=== PATIENT | male | born 1960 | race African-American/Black ===

== ENCOUNTER 2018-05-26 14:30 | Outpatient (RCR) | payer MEDICAID, SELFPAY ==
--- NOTE | 2018-02-14 16:04 | HP.PTEVAL ---
Patient's Visit Information SERGIO DYER is a 57 year old M referred to Physical Therapy by Larry Correa with a diagnosis of BACK PAIN. Date of Evaluation: 02/14/18 Physical Therapist: Logan Demarco, PT, - Visit Plan Frequency: 2x /Week Duration: 4 Weeks Plan: Aquatic PT for lumbar ROM,LE ROM -HIP,DLS ,LE STRENGTHENING,POSTURAL EX'S - Subjective Subjective: This 57 y/o male presents to physical therapy with back pain. Patient has had lumbar pain many years no trauma just incidous onset of pain. 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 Patient location of pain symttrical lumbar descriped as ache -dull. Symptoms bending,standing 10min, walking 1/4 mile ,lifting,sitting . Patient symptoms rest. Occassional parathesia/tingling right leg. Coughing/sneezing -. Bowel/bladder good. Patient has difficlty sleeping at night. Patien affects QOL and ADL'S. Patient has injections in past. VOCATION: disablity. SOCAIL: single - Pain Bilateral Back Pain Intensity (Out of 10): 7 Pain Intensity Range: 10 - Objective POSTURE: mild foward posture trunk flexed. GAIT: ambulates with cane mild fowaerd posture antalgic gait right vside with cane. NEURO: occassional parathesia lower leg,reflexes L3-4,L4-5,L5-S1 1/3. PALPATION: tender SI /LS. SYMMTRIES: leg length assymtries 2 right. PROM: hip flexion 80 degrees pain,abduction 20 degrees,IR -5 Degrees. FLEXABLITY: hams mod tight. LUMBAR ROM: flexion mod loss ,side glides mod loss,extension severe loss. MMT:right quads/hams 4-/5,3+/5 flexion hip ,abd 3-/5 pain right ,left 4/5 excvept hip 4-/5 - Special Tests L/S Slump test left side: Negative L/S Slump test right side: Negative L/S Left Straight Leg Raise: Negative L/S Right Straight Leg Raise: Negative - Goals Goal 1:: Independant with Aquatic PT Goal Time Frame: 4-6 Weeks Goal 2:: Patient to improve posture for ADLS' Goal Time Frame: 4-6 Weeks Goal 3:: Patient decrease back pain by 40% or greater to improve function with ADL'S Goal Time Frame: 4-6 Weeks Goal 4:: Patient to improve lumbar ROM for function of recovery Goal Time Frame: 4-6 Weeks Goal 5:: Patient to improve gait with less anatalgic gait with cane by 60 % or greater . Goal Time Frame: 4-6 Weeks - Rehabilitation Potential Physical Therapy Diagnosis: This 57 y/o male has lumbar pain along with right hip pain due to DJD with right leg extremely shorter ,with patient being a candidate for THR. Patient has pain lumbar,weakness ,poor lumbar ROM ,gait deficits causes impairments with ADL'S Rehabilitation Potential: Good - Anticipated Interventions Patient/Client Instruction: Educate patient on: Condition, Plan of Care For the Purpose of:: To decrease pain, To increase ROM, To improve muscle performance and motor function, To increase tolerance to activity/condition/position, To improve performance and independence with ADL's, To improve ability of physical actions for home/community/work/leisure, To improve health of tissue, To decrease soft tissue restriction, To increase flexibility/ROM, To improve ability to perform tasks related to life management Therapeutic Exercise to Include: Strength training, Body mechanics, Postural training, Flexibilty training, In an aquatic setting, Active ROM, Dynamic Lumbar Stabilization Comment: LE-HIP For the Purpose of:: To decrease pain, To increase ROM, To improve muscle performance and motor function, To improve ability to perform ADL's, To increase tolerance to activity/condition/position, To improve ability of physical actions for home/community/work/leisure, To improve gait and locomotor functions, To improve health of tissue, To decrease soft tissue restriction, To increase flexibility/ROM, To improve endurance, To improve ability to perform tasks related to life management Thank you for the opportunity to evaluate your patient. For Medicare and Medicare HMO plans, please review the plan of care and approve it. It will need to be FAXED BACK to us at [phone] for Medicare purposes. Please let me know if there are questions or concerns regarding this plan of care. Physician Signature: Date:
--- NOTE | 2018-04-10 18:40 | HP.PTDCNRP_ITS ---
HP - Discharge Summary (1) - Patient Information SERGIO DYER was seen in my office for initial evaluation on 02/14/18. The following Plan of Care was established for this patient: Initial Frequency: 2x /Week Initial Duration: 4 Weeks - Anticipated Interventions Patient/Client Instruction: Educate patient on: Condition, Plan of Care For the Purpose of:: To decrease pain, To increase ROM, To improve muscle perf ormance and motor function, To increase tolerance to activity/condition/position, To improve performance and independence with ADL's, To improve ability of physical actions for home/community/work/leisure, To improve health of tissue, To decrease soft tissue restriction, To increase flexibility/ROM, To improve ability to perform tasks related to life management Therapeutic Exercise to Include: Strength training, Body mechanics, Postural training, Flexibilty training, In an aquatic setting, Active ROM, Dynamic Lumbar Stabilization For the Purpose of:: To decrease pain, To increase ROM, To improve muscle performance and motor function, To improve ability to perform ADL's, To increase tolerance to activity/condition/position, To improve ability of physical actions for home/community/work/leisure, To improve gait and locomotor functions, To improve health of tissue, To decrease soft tissue restriction, To increase flexibility/ROM, To improve endurance, To improve ability to perform tasks related to life management This patient was last seen in our office 02/23/18. Pertinent comments regarding their Physical therapy will appear below: Patient seen for PT for back pain for Aquatic PT but is d/c after 2 visits. At this point I will be discontinuing this patient from physical therapy. I would be happy to see this patient again in the future if found appropriate by the physician. Thank you! Logan Demarco, PT,
--- NOTE | 2018-08-10 09:18 | HP.PTDCNRP_ITS ---
HP - Discharge Summary (1) - Patient Information SERGIO DYER was seen in my office for initial evaluation on 02/14/18. The following Plan of Care was established for this patient: Initial Frequency: 2x /Week Initial Duration: 4 Weeks - Anticipated Interventions Patient/Client Instruction: Educate patient on: Condition, Plan of Care For the Purpose of:: To decrease pain, To increase ROM, To improve muscle perf ormance and motor function, To increase tolerance to activity/condition/position, To improve performance and independence with ADL's, To improve ability of physical actions for home/community/work/leisure, To improve health of tissue, To decrease soft tissue restriction, To increase flexibility/ROM, To improve ability to perform tasks related to life management Therapeutic Exercise to Include: Strength training, Body mechanics, Postural training, Flexibilty training, In an aquatic setting, Active ROM, Dynamic Lumbar Stabilization For the Purpose of:: To decrease pain, To increase ROM, To improve muscle performance and motor function, To improve ability to perform ADL's, To increase tolerance to activity/condition/position, To improve ability of physical actions for home/community/work/leisure, To improve gait and locomotor functions, To improve health of tissue, To decrease soft tissue restriction, To increase flexibility/ROM, To improve endurance, To improve ability to perform tasks related to life management This patient was last seen in our office 02/23/18. Pertinent comments regarding their Physical therapy will appear below: Patient seen for Aquatic PT for back pain focusing on strengthening ,DLS,ROM but d/c due to not returning At this point I will be discontinuing this patient from physical therapy. I would be happy to see this patient again in the future if found appropriate by the physician. Thank you! Logan Demarco, PT, Cert MDT, OCS
== END 2018-05-26 19:00 | disposition home or self-care (01) ==
LOC: PT 14:30
PROVIDERS: Family Provider Family Medicine; PCP Nurse Practitioner Family; Referring Provider Nurse Practitioner Family; Visit Provider Anesthesiology Pain Medicine
DX: M54.9 Dorsalgia, unspecified (principal)
CPT/HCPCS: 97113; 97161; 97530

== ENCOUNTER 2018-08-29 13:12 | Outpatient (RCR) | payer MEDICAID, SELFPAY ==
--- NOTE | 2018-08-29 15:31 | HP.PTEVAL_ITS ---
Patient's Visit Information SERGIO DYER is a 57 year old M referred to Physical Therapy by MADDY Palafox with a diagnosis of CHRONIC RIGHT SIDED LOW BACK PAIN WITHOUT SCIATICA,ACUTE PAIN LEFT KNEE. Date of Evaluation: 08/29/18 Physical Therapist: Logan Demarco, PT, Cert MDT, OCS - Visit Plan Frequency: 2x /Week Duration: 4 Weeks Plan: Aquatic PT for lumbar ROM ,DLS,LE ROM flexablity,strengthening,endurance - Subjective Findings: This 57 y/o male presents to physical therapy with chronic right side low back and left knee pain. Patient states lumbar and left knee many years. Patient has been in PT last year with Aquatic. Location lumbar right side radiates to knee. Patient has avascular necrosis plan to have surgery. Patient seen Dr had x-rays knee,back . Patient using cane for gait. Patient aggravating factors walking ,standing ,bending ,lifting squatting back and knee. Alleviating factors MEDS. Patient denies parathesia/tingling. Bowel/bladder -.Patient pain affects sleeping. Patient has difficulty with stairs one step at a time. Patient symptoms affects ability work ,houseworks tasks and ADL'S. Patient symptoms QOL and function. SOCIAL: single. VOCATION: disablity - Pain Right Back Pain Intensity (Out of 10): 7 Pain Intensity Range: 10 Right Knee Pain Intensity (Out of 10): 10 Pain Intensity Range: 10 Right Lower Extremity Pain Intensity (Out of 10): 9 Pain Intensity Range: 10 Comment: thigh - Objective POSTURE: foward posture hip/knee. GAIT: ambulates with straight cane antalgic gait. NEURO: denies parathesia/tingling,reflexes L3-4,L4-5,L5-S1. SYMMTRIES: 2 leg shorter on right. PROM: HIP right IR/ER 0 degrees,hip flexion 95 degrees,knee 20-120 degrees,left 0-110 degrees supine knee flexion. MMT: quads/hams 3+/5,hip 3+/5,hip abd 3-/5,left quads/hams/hip 4-/5. FLEXABLITY: hams mod loss,. LUMBAR ROM: flexion mod/severe lumbar,extension severe loss glides mod loss - Special Tests L/S Slump test left side: Negative L/S Slump test right side: Negative L/S Left Straight Leg Raise: Positive L/S Right Straight Leg Raise: Positive R Hip Scour: Positive L Knee Cristian - Meniscus: Negative L Knee Valgus - MCL: Negative L Knee Varus - LCL: Negative L Knee Patellar Apprehension - PFS: Negative L Knee Patellar Grind - PFS: Negative - Goals Goal 1:: Patient to be Indeoendant with Aquatic PT Goal Time Frame: 4-6 Weeks Goal 2:: Patient to decrease pain by 40% or greater to improve function. Goal Time Frame: 4-6 Weeks Goal 3:: Patient to improve lumbar ROM for function of recovery Goal Time Frame: 4-6 Weeks Goal 4:: Patient increase strength BLE by 1/2 to improve gait. Goal Time Frame: 4-6 Weeks Goal 5:: Patient to improve quality of gait with less anatlgic gait. Goal Time Frame: 4-6 Weeks Goal 6:: Patient to back owstrey scale by 5 points to improve QOL Goal Time Frame: 4-6 Weeks - Rehabilitation Potential Physical Therapy Diagnosis: This patient has lumbar pain and knee pain along with hip pain with 2 leg length discrepency,with decrease knee left and right hip ROM ,decrease strength,poor lumbar ROM,thus impairs gait and moblity Rehabilitation Potential: Fair - Anticipated Interventions Patient/Client Instruction: Educate patient on: Condition, Plan of Care For the Purpose of:: To decrease pain, To increase ROM, To improve muscle performance and motor function, To improve ability to perform ADL's, To increase tolerance to activity/condition/position, To improve performance and independence with ADL's, To improve ability of physical actions for home/community/work/leisure, To improve health of tissue, To decrease soft tissue restriction, To increase flexibility/ROM, To improve endurance, To i mprove ability to perform tasks related to life management Therapeutic Exercise to Include: Strength training, Endurance training, Body mechanics, Postural training, Flexibilty training, In an aquatic setting, Active ROM, Dynamic Lumbar Stabilization Comment: HIP/KNEE For the Purpose of:: To decrease pain, To improve muscle performance and motor function, To improve ability to perform ADL's, To increase tolerance to activity/condition/position, To improve ability of physical actions for home/community/work/leisure, To improve health of tissue, To decrease soft tissue restriction, To increase flexibility/ROM, To improve endurance, To improve balance, To improve tolerance to ADL's Thank you for the opportunity to evaluate your patient. For Medicare and Medicare HMO plans, please review the plan of care and approve it. It will need to be FAXED BACK to us at [phone] for Medicare purposes. For Medicare only, by signing this I certify the plan of care. Please let me know if there are questions or concerns regarding this plan of care. Physician Signature:___ Date:
--- NOTE | 2018-11-28 09:38 | HP.PTDCNRP_ITS ---
HP - Discharge Summary (1) - Patient Information SERGIO DYER was seen in my office for initial evaluation on 08/29/18. The following Plan of Care was established for this patient: Initial Frequency: 2x /Week Initial Duration: 4 Weeks - Anticipated Interventions Patient/Client Instruction: Educate patient on: Condition, Plan of Care For the Purpose of:: To decrease pain, To increase ROM, To improve muscle perf ormance and motor function, To improve ability to perform ADL's, To increase tolerance to activity/condition/position, To improve performance and independence with ADL's, To improve ability of physical actions for home/community/work/leisure, To improve health of tissue, To decrease soft tissue restriction, To increase flexibility/ROM, To improve endurance, To improve ability to perform tasks related to life management Therapeutic Exercise to Include: Strength training, Endurance training, Body mechanics, Postural training, Flexibilty training, In an aquatic setting, Active ROM, Dynamic Lumbar Stabilization For the Purpose of:: To decrease pain, To improve muscle performance and motor function, To improve ability to perform ADL's, To increase tolerance to activity/condition/position, To improve ability of physical actions for home/community/work/leisure, To improve health of tissue, To decrease soft tissue restriction, To increase flexibility/ROM, To improve endurance, To improve balance, To improve tolerance to ADL's This patient was last seen in our office . Pertinent comments regarding their Physical therapy will appear below: Patient seen for PT for LBP for Aquatic PT but patiet NS/CX several appointments thus is d/c. At this point I will be discontinuing this patient from physical therapy. I would be happy to see this patient again in the future if found appropriate by the physician. Thank you! Logan Demarco, PT, Cert MDT, OCS
== END 2018-08-29 19:00 | disposition home or self-care (01) ==
LOC: PT 13:12
PROVIDERS: Family Provider Physician Assistant; PCP Physician Assistant; Referring Provider Physician Assistant; Visit Provider Physician Assistant
DX: M54.5 Low back pain (principal); G89.29 Other chronic pain; M25.562 Pain in left knee; M25.462 Effusion, left knee
CPT/HCPCS: 97162